=== PATIENT | male | born 1970 | race Two or more races ===

== ENCOUNTER 2018-11-09 09:56 | Outpatient (CLI) | payer OTHER | END 2018-11-09 10:54 | disposition home or self-care (01) | LOC: RAD 501 09:56 | DX: M79.605 Pain in left leg (principal) ==

== ENCOUNTER → 2018-11-10 | Outpatient (CLI) | payer OTHER | END | disposition home or self-care (01) | LOC: MAMO-SONO 13:45 → SONOGRAMA 13:53 | DX: S86.112D Strain of other muscle(s) and tendon(s) of posterior muscle group at lower leg level, left leg, subsequent encounter (principal) ==

== ENCOUNTER 2021-08-17 13:19 | Outpatient (CLI) | payer OTHER | END 2021-08-17 13:34 | disposition home or self-care (01) | LOC: RAD 13:19 | PROVIDERS: ATTEND Orthopaedic Surgery | DX: M25.561 Pain in right knee (principal) ==